=== PATIENT | female | born 1955 | race Caucasian/White ===

== ENCOUNTER → 2018-03-08 14:41 | Outpatient (CLI) | payer OTHER, SELFPAY ==
--- NOTE | 2018-03-08 | DI.RAD.S_ITS ---
PROCEDURE: XR ANKLE RT MIN 3V INDICATIONS: ACUTE RIGHT ANKLE PAIN TECHNIQUE: 3 views of the ankle were acquired. COMPARISON: None. FINDINGS: Bones: No fractures or dislocations. Ankle mortise is normally aligned. No suspicious bony lesions. Soft tissues: There is marked soft tissue swelling of the lateral malleolus. No tibiotalar joint effusion. Achilles tendon appears normal. IMPRESSION: Lateral malleolar soft tissue swelling. No acute fracture visualized. If pain persists, followup imaging in 5-7 days is recommended to exclude occult fracture. Dictated by: Sarah Alonzo M.D. on 03/08/2018 at 15:32 Approved by: Sarah Alonzo M.D. on 03/08/2018 at 15:33
== END ==
PROVIDERS: Family Provider Family Medicine; PCP Family Medicine; Visit Provider Nurse Practitioner Family
DX: M25.571 Pain in right ankle and joints of right foot (principal); M79.89 Other specified soft tissue disorders
CPT/HCPCS: 73610

== ENCOUNTER → 2018-11-24 15:34 | Outpatient (CLI) | payer OTHER, SELFPAY ==
[2018-11-24 17:03] LABS: Alanine Aminotransferase 17 IU/L (9-52); Albumin 4.1 g/dL (3.5-5.0); Albumin Globulin Ratio 1.6 (1.0-2.8); Alkaline Phosphatase 79 U/L (38-126); Aspartate Aminotransferase 19 IU/L (14-36); Bilirubin Total 0.2 mg/dL (0.2-1.3); Bilirubin Unconjugated 0.2 mg/dL (0.0-1.1); Globulin 2.6 g/dL (1.7-4.1); HEMOLYSIS < 15 (0-50); Total Protein 6.7 g/dL (6.3-8.2)
[2018-11-24 17:49] LABS: Hepatitis B Surface Antigen NEGATIVE s/c (NEGATIVE)
[2018-11-24 18:01] LABS: HIV 1 & 2 Ab/Ag 4th Gen Combo NEGATIVE (NEGATIVE); Hep C Virus Ab w/Reflex Quant NEGATIVE s/c (NEGATIVE)
[2018-11-27 13:25] LABS: Mitogen-NIL > 10.00 IU/mL; NIL 0.03 IU/mL; QuantiFERON TB POSITIVE (Negative); TB1-NIL 5.47 IU/mL; TB2-NIL 3.43 IU/mL
[2018-12-01 10:04] LABS: Hepatitis B Surf Ab Qualitativ Nonreactive (Nonreactive)
== END ==
PROVIDERS: PCP Family Medicine; Visit Provider Dermatology
DX: L40.0 Psoriasis vulgaris (principal)
CPT/HCPCS: 36415; 80076; 86480; 86706; 86803; 87340; 87389

== ENCOUNTER → 2018-12-11 10:34 | Outpatient (CLI) | payer OTHER, SELFPAY ==
--- NOTE | 2018-12-11 | DI.RAD.S_ITS ---
PROCEDURE: XR CHEST 2V INDICATIONS: ROUTINE TECHNIQUE: 2 views of the chest were acquired. COMPARISON: None. FINDINGS: Surgical changes and devices: None. Lungs and pleura: Lungs are clear. No pleural effusions or pneumothorax. Mediastinum: Mediastinal contours are normal. Heart size is normal. Bones and chest wall: No suspicious bony abnormalities. Soft tissues appear unremarkable. IMPRESSION: Negative chest. No acute cardiopulmonary process is evident. Dictated by: Gilmar Travis M.D. on 12/11/2018 at 9:50 Approved by: Gilmar Travis M.D. on 12/11/2018 at 9:51
== END ==
PROVIDERS: PCP Family Medicine; Visit Provider Family Medicine
DX: R76.12 Nonspecific reaction to cell mediated immunity measurement of gamma interferon antigen response without active tuberculosis (principal)
CPT/HCPCS: 71046

== ENCOUNTER → 2020-11-22 15:31 | Outpatient (CLI) | payer MEDICARE, SELFPAY ==
--- NOTE | 2020-11-22 15:32 | DI.ECHO.S_ITS ---
[facility] +---------+ : : [address] : : : : [id number] : : : : Phone: [phone]+ Echocardiogram Report + + :Name: DELIA SAUNDERS Study Date: 11/22/2020 Height: 65 in : :[facility] ReadingLocation: Weight: 162 lb : : Gender: Female BSA: 1.8 m2 : :: 1955 Age: 65 yrs BP: 150/80 mmHg: :Reason For Study: Murmur : : Performed By: BISHOP ARAMBULA : :Referring: SEBASTIAN RASCON : + + Interpretation Summary The left ventricle is hyperdynamic. The ejection fraction is estimated to be 70-75%. The aortic valve is mildly calcified. There is mild aortic stenosis. There is trace aortic regurgitation. Procedure: A two-dimensional transthoracic echocardiogram with color flow and Doppler was performed. The study quality was technically difficult. Images from the parasternal window were difficult to obtain and are suboptimal in quality. Most of the acoustic windows were suboptimal, but the best imaging was obtained from the apical window. There is no prior echocardiogram noted for this patient. The patient was in normal sinus rhythm during the exam. Left Ventricle: The left ventricular cavity is small. There is normal left ventricular wall thickness. The left ventricle is hyperdynamic. The ejection fraction is estimated to be 70-75%. Right Ventricle: The right ventricle is normal in size and function. Atria: The left atrial size is normal. Right atrial size is normal. There is no Doppler evidence for an interatrial shunt. Lipomatous hypertrophy of the interatrial septum is noted. Mitral Valve: The mitral valve is normal. There is trace mitral regurgitation. Aortic Valve: The aortic valve is trileaflet. The aortic valve is mildly calcified. The aortic valve opens well. The peak aortic velocity is 2.9 m/sec. The aortic valve mean gradient is 17 mmHg. There is mild aortic stenosis. There is trace aortic regurgitation. Tricuspid Valve: The tricuspid valve is normal. There is a trace or physiologic amount of tricuspid regurgitation. Pulmonary artery pressures cannot be estimated because of the lack of a measurable TR jet velocity but the IVC suggests a CVP of around 3 mmHg. Pulmonic Valve: The pulmonic valve is not well seen, but is grossly normal. Great Vessels: The aortic root is normal size. The ascending aorta could not be visualized. The aortic arch is normal in size. The IVC is of normal diameter and collapses greater than 50% with a sniff. This suggests a low right atrial pressure of 3 mm Hg. Pericardium/ Pleura There is no pericardial effusion. There is an anterior echo-free space consistent with a fat pad. There is no pleural effusion. MMode/2D Measurements & Calculations LVIDd: 3.7 cm Ao root diam: 2.8 cm LVIDs: 2.5 cm Ao Arch Diam (Prox Trans): 1.9 cm FS: 33.4 % IVSd: 1.00 cm LVPWd: 0.97 cm LV galaviz. diameter/BSA (cm/m^2): 2.1 LV sys. diameter/BSA (cm/m^2): 1.4 LA A2 area: 16.7 cm2 RA long axis: 4.4 cm LA A4 area: 15.4 cm2 RA area: 11.6 cm2 LA length (vol): 5.2 cm RA vol: 25.8 ml LA vol: 42.2 ml RA : 14.2 ml/m2 LA vol index: 23.3 ml/m2 RVD1 (basal): 3.5 cm TAPSE: 2.5 cm Doppler Measurements & Calculations Ao V2 max: 286.9 cm/sec LVOT Max Dany: 139.8 cm/sec Ao V2 mean: 197.9 cm/sec LV V1 max P.8 mmHg Ao max P.9 mmHg LV V1 VTI: 28.9 cm Ao mean P.2 mmHg sev ratio: 0.47 Ao V2 VTI: 61.5 cm MV E max dany: 69.7 cm/sec PA V2 max: 90.9 cm/sec MV A max dany: 118.7 cm/sec PA V2 mean: 75.3 cm/sec MV E/A: 0.59 PA mean P.4 mmHg Med Peak E' Dany: 4.5 cm/sec PA pr(Accel): 32.8 mmHg E/E' med: 15.4 Lat Peak E' Dany: 5.9 cm/sec E/E' lat: 11.8 E/e' average: 13.6 MV dec time: 0.30 sec Reading Physician:03:17 PM
== END ==
PROVIDERS: PCP Family Medicine; Referring Provider Family Medicine; Visit Provider Family Medicine
DX: I35.0 Nonrheumatic aortic (valve) stenosis (principal); R01.1 Cardiac murmur, unspecified
CPT/HCPCS: 93306

== ENCOUNTER → 2021-04-23 08:06 | Outpatient (CLI) | payer MEDICARE, SELFPAY ==
[2021-04-23 19:38] LABS: COVID19 - ORCAS (NP or Nasal) Negative (Negative)
== END ==
PROVIDERS: PCP Family Medicine; Visit Provider Family Medicine
DX: Z20.822 Contact with and (suspected) exposure to COVID-19 (principal)
CPT/HCPCS: C9803; U0003

== ENCOUNTER → 2021-04-24 09:24 | Outpatient (CLI) | payer MEDICARE, SELFPAY ==
--- NOTE | 2021-04-24 09:27 | DI.RAD.S_ITS ---
PROCEDURE: FL SHOULDER INJECTION MR/CT RT INDICATIONS: HISTORY OF RIGHT ROTATOR CUFF REPAIR COMPARISON: None TECHNIQUE: The indications, alternatives, benefits, risks, and complications of the procedure were explained to the patient. Written informed consent was obtained and placed in the chart. The shoulder was examined fluoroscopically and a site for needle placement chosen for entry into the glenohumeral joint from an anterior approach. The skin was prepped and draped in a sterile fashion, and 1% lidocaine infiltrated from skin down to joint capsule. A spinal needle was inserted into the glenohumeral joint, and a small amount of iodinated contrast media injected to confirm intra-articular placement of the needle tip. This was followed by approximately 12 mL dilute solution of a gadolinium containing MR contrast agent. The needle was removed and a dressing was applied. The patient was given postprocedural instructions and sent to the MR suite for MR imaging. FINDINGS: A single fluoroscopic spot image demonstrates intra-articular location of injected iodinated contrast. IMPRESSION: Successful fluoroscopically guided administration of dilute Gadolinium solution into the shoulder joint for MR arthrogram. Dictated by: Jere Mace M.D. on 04/24/2021 at 11:11 Approved by: Jere Mace M.D. on 04/24/2021 at 11:12
--- NOTE | 2021-04-24 09:27 | DI.MRI.S_ITS ---
PROCEDURE: MR SHOULDER RT W CON INDICATIONS: HISTORY OF RIGHT ROTATOR CUFF REPAIR TECHNIQUE: After the administration of 12 mL of dilute intra-articular Gadolinium contrast, oblique coronal T1 and T2 spin echo with fat saturation, oblique sagittal T1 spin echo with and without fat saturation, oblique sagittal T2 fast spin echo with fat saturation, axial T1 spin echo with fat saturation through the shoulder. COMPARISON: [facility] ([place]), CR, XR SHOULDER RT MIN 2V, 03/13/2021, 9:58. FINDINGS: Image quality: Degraded by motion artifact. Rotator cuff: Full-thickness tearing of the entire supraspinatus tendon is present with medial retraction and atrophy of the supraspinatus. There is mild diffuse T2 signal elevation throughout the infraspinatus tendon at the humeral insertion site, extending to the musculotendinous junction, indicating tendinopathy. Low-grade partial-thickness intrasubstance articular surface tearing of the anterior, mid, and posterior infraspinatus tendon at the humeral insertion site. Full-thickness tearing of most of the subscapularis tendon is present with medial retraction and atrophy. There are a few intact fibers of superior and inferior subscapularis tendon remaining. Bones and bursae: Tendon anchor within the humeral head. No bone marrow contusions or fractures. Superior subluxation the humeral head. There is a well-circumscribed high T2 intensity focus within the humeral head/neck, measuring roughly 20 mm diameter, which demonstrates multiple nodular internal low T2 intensity foci. 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 Moderate acromioclavicular joint degeneration. The acromion demonstrates conventional anatomy, without an os acromiale. Capsule and soft tissues: Diffuse degenerative glenoid labral tearing. Biceps tendon is dislocated medially. The rotator interval appears normal, without fibrosis. The coracohumeral ligament is of normal thickness. No intra-articular bodies. IMPRESSION: 1. Full-thickness tearing of the entire supraspinatus and most of the subscapularis tendons, with associated atrophy. 2. Tendinopathy with superimposed partial thickness tears of the infraspinatus tendon. 3. Low-grade cartilaginous lesion within the proximal humerus as described above. 4. Acromioclavicular joint osteoarthritis. 5. Biceps tendon dislocation. 6. Diffuse degenerative glenoid labral tearing. 7. Postsurgical sequelae. Dictated by: Nathan Fitzgerald M.D. on 04/24/2021 at 11:02 Approved by: Nathan Fitzgerald M.D. on 04/24/2021 at 11:06
== END ==
PROVIDERS: PCP Family Medicine; Referring Provider Orthopaedic Surgery; Visit Provider Orthopaedic Surgery
DX: S46.011A Strain of muscle(s) and tendon(s) of the rotator cuff of right shoulder, initial encounter (principal); M19.011 Primary osteoarthritis, right shoulder; S43.431A Superior glenoid labrum lesion of right shoulder, initial encounter
CPT/HCPCS: 23350; 73222; 77002

== ENCOUNTER → 2021-04-29 08:14 | Outpatient (CLI) | payer MEDICARE, SELFPAY ==
[2021-04-29 19:33] LABS: COVID19 - ORCAS (NP or Nasal) Negative (Negative)
== END ==
PROVIDERS: PCP Family Medicine; Visit Provider Family Medicine
DX: Z01.812 Encounter for preprocedural laboratory examination (principal); Z20.822 Contact with and (suspected) exposure to COVID-19
CPT/HCPCS: C9803; U0003

== ENCOUNTER 2021-05-01 09:23 | Day surgery (SDC) | payer MEDICARE, SELFPAY ==
--- NOTE | 2021-05-01 | PATH_ITS ---
[facility] Accession Number: [id number] . 01 Material submitted: . PART A: colon - RANDOM COLON BIOPSIES PART B: colon - TRANSVERSE COLON POLYP X2 . 02 Diagnosis: A. Random Colon Biopsies: Colonic mucosa with no diagnostic abnormality. Negative for active, chronic, and microscopic colitis. Negative for dysplasia and malignancy. . B. Transverse Colon Polyp x2: Multiple (approximately five) portions of tubular adenoma. MRV 05/06/2021 1332 Local . 02 Electronically signed: . Destiny Duke MD, Pathologist NPI- [id number] . 01 Gross description: . Part A: RANDOM COLON BIOPSIES: Received in formalin are 4 fragment(s) of ahumada, soft tissue measuring 0.1 x 0.1 x 0.1 cm to 0.4 x 0.2 x 0.2 cm submitted entirely in 1 cassette(s) Part B: TRANSVERSE COLON POLYP X2: Received in formalin are multiple fragment(s) of ahumada, soft tissue measuring 0.1 x 0.1 x 0.1 cm to 0.5 x 0.3 x 0.2 cm submitted entirely in 1 cassette(s) /SHAYAN 05/02/[id number] Local . 02 Pathologist provided ICD-10: K63.5, R19.7, R10.12, Z86.010 . 02 CPT . 496346, 959657 Specimen Comment: A courtesy copy of this report has been sent to [phone] Performed at: 01 [facility] [address], [place], [place] [id number] MD Brandon Puente MD Phone: [phone] Performed at: 02 [facility] [address] [address], [place] [id number] MD Kenna Alfonso MD Phone: [phone]
[2021-05-01 11:09] VITALS: BP 159/80; PULSE 77; RESP 14; TEMP 36.2; O2SAT 98; BMI 26.9
[2021-05-01] MEDS: SODIUM CHLORIDE 0.9% 1,000 ML 84 ML IV (11:19)
--- NOTE | 2021-05-01 11:30 | PM.HP.1 ---
History of Present Illness History of Present Illness Date Patient Seen: 05/01/21 Chief complaint: DX COLONOSCOPY Narrative: Diarrhea and left lower quadrant pain Patient History Medical History (Updated 05/01/21 @ 11:05 by Estelle Matthews RN) Diabetes Hypertension Family & Social History Social History: household members spouse Tobacco & Substance use: Tobacco type cigarettes Smoking packs per day 1 alcohol intake frequency holiday/special occasion Substance Use Type does not use Meds Home Medications and Allergies Home Medications Medication Instructions Recorded Confirmed Type fluoxetine 20 mg capsule mg 05/01/21 History glipizide 2.5 mg tablet, extended mg PO 05/01/21 History release 24 hr metformin 500 mg tablet mg 05/01/21 History simvastatin 20 mg tablet mg 05/01/21 History triamterene 75 tab 05/01/21 History mg-hydrochlorothiazide 50 mg tablet Allergies Allergy/AdvReac Type Severity Reaction Status Date / Time No Known Drug Allergies Allergy Verified 05/01/21 11:05 Exam Vital Signs (past 8 hours): - 05/01/21 11:09 Temperature 97.2 F L Pulse Rate 77 Respiratory Rate 14 Blood Pressure 159/80 H Pulse Oximetry 98 Oxygen Delivery Method Room Air Narrative Exam Narrative: Oropharynx free of lesions Chest clear to auscultation percussion Cardiac exam reveals no S3 or murmur Assessment & Plan Assessment & Plan narrative: Diarrhea and left lower quadrant pain rule out underlying colitis. Biopsies will be taken regardless. Risks, benefits, alternatives have been explained. Time Spent With Patient Critical Care time: I spent a total of [] minutes of critical care time on this patient's care today; this time is exclusive of procedural time.
--- NOTE | 2021-05-01 11:31 | PM.OP.COLON ---
Operative Date/Time/Diagnoses Date of procedure: 05/01/21 Pre-op diagnosis: See indication and findings Procedure & Clinicians Study performed: Colonoscopy with biopsy Indications: Diarrhea and left lower quadrant pain Surgeon: Chel Carrasco Procedure Notes Procedure in detail: After informed consent was obtained the patient was placed in left lateral decubitus position. The video colonoscope was introduced the rectum slowly advanced cecum. Preparation was good. On slow withdrawal mucosa was carefully examined. The scope was removed. The patient tolerated tolerated the procedure well. Blood loss none Complications none Sedation mac Findings 1. Two transverse colon polyps each 6 mm and each removed with a cold snare completely. 2. Random biopsies taken throughout the colon to rule out microscopic colitis 3. Sigmoid diverticulosis 4. Otherwise negative colonoscopy to cecum Will be in touch regarding pathology results
[2021-05-01 11:56] VITALS: BP 99/46; PULSE 66; RESP 20; TEMP 35.7; O2SAT 94
[2021-05-01 12:01] VITALS: BP 101/48; PULSE 60; RESP 12; O2SAT 97
[2021-05-01 12:06] VITALS: BP 130/56; PULSE 66; RESP 16; O2SAT 97
[2021-05-01 12:10] VITALS: BP 131/62; PULSE 63; RESP 20; O2SAT 95
[2021-05-01 12:21] VITALS: BP 154/68; PULSE 67; RESP 18; TEMP 36.1; O2SAT 95
== END 2021-05-01 12:30 | disposition home or self-care (01) ==
PROVIDERS: PCP Family Medicine; Referring Provider Internal Medicine Gastroenterology; Visit Provider Internal Medicine Gastroenterology
PROC: 0DJD8ZZ Inspection of Lower Intestinal Tract, Via Natural or Artificial Opening Endoscopic (ICD-10-PCS; CPT 45378; principal; 2021-05-01 11:30)
DX: R19.7 Diarrhea, unspecified (principal); R10.32 Left lower quadrant pain; K57.30 Diverticulosis of large intestine without perforation or abscess without bleeding; D12.3 Benign neoplasm of transverse colon
CPT/HCPCS: 45385; 45380; J2704

== ENCOUNTER → 2021-05-08 09:03 | Outpatient (CLI) | payer MEDICARE, SELFPAY ==
--- NOTE | 2021-05-08 10:12 | DI.CT.S_ITS ---
PROCEDURE: CT ABDOMEN PELVIS W CON INDICATIONS: Left upper quadrant pain TECHNIQUE: After the administration of oral and IV contrast, axial sections were acquired from the lung bases to the pubic symphysis. Coronal and sagittal reformats were performed. For radiation dose reduction, the following was used: automated exposure control, adjustment of mA and/or kV according to patient size. COMPARISON: Located Within [facility], CT, ABDOMEN/PELVIS WITH CONTRAST, 12/07/2007, 13:23. FINDINGS: Image quality: Excellent. Lung bases: There is a calcified granuloma in the left lung base. Small hiatal hernia and mild concentric thickening at the GE junction. Heart: No significant findings. ABDOMEN: Liver: Normal size. Mild steatosis. Calcified granulomas are noted. Gallbladder: Unremarkable. Biliary ducts: Unremarkable. Pancreas: Unremarkable. Spleen: Size. There are multiple calcified granulomas. Spleen is normal in size. Splenules are noted. Adrenal Glands: Unremarkable. Kidneys and Ureters: Normal size and symmetric enhancement. Cortical scars are seen bilaterally no stones or hydronephrosis. Stomach and Bowel: Stomach, small bowel loops, and colon are unremarkable. Moderate amount of stool in colon Peritoneum: No abnormal intraperitoneal fluid. No free air. Ventral Wall: No hernia. Abdominal Nodes: No retroperitoneal or mesenteric adenopathy by size criteria. Vessels: Aorta and inferior vena cava are normal in size. PELVIS: Pelvic Organs: Unremarkable. Bladder: Wall thickening. Pelvic Nodes: No enlarged lymph nodes. Miscellaneous: No inguinal hernias are seen. Bones: Moderate degenerative disc and facet disease in lumbar spine. IMPRESSION: 1. Diffuse bladder wall thickening with cystitis. 2. Bilateral renal cortical scars. 3. Mild hepatic steatosis. 4. Small hiatal hernia and mild concentric thickening of the GE junction. If clinically indicated, esophagram or upper endoscopy may be helpful 5. Remote granulomatous disease in the left lung base, liver and spleen. Dictated by: Vivi Donald M.D. on 05/08/2021 at 11:21 Approved by: Vivi Donald M.D. on 05/08/2021 at 17:02
== END ==
PROVIDERS: PCP Family Medicine; Referring Provider Family Medicine; Visit Provider Family Medicine
DX: N30.90 Cystitis, unspecified without hematuria (principal); K76.0 Fatty (change of) liver, not elsewhere classified; K44.9 Diaphragmatic hernia without obstruction or gangrene; R10.12 Left upper quadrant pain
CPT/HCPCS: 74177

== ENCOUNTER → 2023-05-07 10:43 | Outpatient (CLI) | payer MEDICARE, SELFPAY ==
--- NOTE | 2023-05-07 | DI.ECHO.S_ITS ---
[facility]---------+ [facility] +---------+ : : [address] : : : : [id number] : : : : Phone: [phone]---------+ Echocardiogram Report + + :Name: DELIA SAUNDERS Study Date: 05/07/2023 Height: 66 in : :[facility] ReadingLocation: Weight: 152 lb : : Gender: Female BSA: 1.8 m2 : :: 1955 Age: 68 yrs BP: 165/94 mmHg: :Reason For Study: MURMUR : :Ordering Physician: ABIODUN, : :SBEASTIAN Ramon Performed By: Jeremy Edwards : :Referring: SEBASTIAN RASCON : + + Interpretation Summary 1) Normal left ventricular thickness, size, wall motion, and systolic function (EF 65-70%). 2) Normal right ventricular size and function. 3) There is moderate aortic stenosis (valve area 1.2cm2, mean gradient 23mmHg, severity ratio 0.41). 4) Compared to the Echo done 11/22/2020, aortic stenosis has progressed from mild to moderate on this study. Procedure: A two-dimensional transthoracic echocardiogram with color flow and Doppler was performed. The study quality was technically adequate. Comparison is made with the echocardiogram of 11/22/2020. The patient was in normal sinus rhythm during the exam. The heart rate ranged between 56-75 bpm during the study. Left Ventricle: The left ventricle is normal in size and wall thickness. Proximal septal thickening is noted. The ejection fraction is estimated to be 65-70%. Left ventricular systolic function appears normal without focal wall motion abnormalities. Diastolic parameters suggest a relaxation abnormality of the left ventricle, consistent with probable normal filling pressures. Right Ventricle: The right ventricle is normal in size and function. Atria: The left atrial size is normal. Right atrial size is normal. The interatrial septum grossly appears intact with no obvious evidence for an atrial septal defect. Mitral Valve: The mitral valve is normal in structure and function. There is no mitral valve stenosis. There is trace mitral regurgitation. Aortic Valve: The aortic valve is trileaflet. There is mild aortic valve sclerosis. There is moderate aortic stenosis. The peak aortic velocity is 3.07 m/sec. The aortic valve mean gradient is 23.0 mmHg. No aortic regurgitation is present. Tricuspid Valve: The tricuspid valve is normal in structure and function. There is no tricuspid stenosis. There is a trace or physiologic amount of tricuspid regurgitation. Pulmonic Valve: The pulmonic valve is not well visualized. There is no pulmonic valvular stenosis. There is no pulmonic valvular regurgitation. Great Vessels: The aortic root is normal size. The ascending aorta could not be visualized. The IVC is of normal diameter and collapses greater than 50% with a sniff. This suggests a low right atrial pressure of 3 mm Hg. Pericardium/ Pleura There is no pericardial effusion. There is no pleural effusion. MMode/2D Measurements & Calculations LVIDd: 4.1 cm LVOT diam: 1.9 cm LVIDs: 2.7 cm Ao root diam: 3.0 cm FS: 34.0 % IVSd: 1.4 cm LVPWd: 0.95 cm LV galaviz. diameter/BSA (cm/m^2): 2.3 LV sys. diameter/BSA (cm/m^2): 1.5 LA A2 area: 16.3 cm2 RA long axis: 3.8 cm LA A4 area: 13.5 cm2 RA area: 8.5 cm2 LA length (vol): 4.4 cm RA vol: 16.1 ml LA vol: 42.7 ml RA : 9.1 ml/m2 LA vol index: 24.0 ml/m2 IVC diam: 1.0 cm RVD1 (basal): 2.6 cm RVD2 (mid): 2.4 cm TAPSE: 1.9 cm Doppler Measurements & Calculations Ao V2 max: 307.4 cm/sec LVOT Max Dany: 105.3 cm/sec Ao V2 mean: 228.6 cm/sec LV V1 max P.4 mmHg Ao max P.8 mmHg LV V1 VTI: 29.9 cm Ao mean P.0 mmHg CHRISTINE(I,D): 1.2 cm2 Ao V2 VTI: 72.2 cm CHRISTINE(V,D): 1.0 cm2 sev ratio: 0.41 CHRISTINE indexed to BSA (cm^2/m^2): 0.68 MV E max dany: 69.9 cm/sec PA V2 max: 112.5 cm/sec MV A max dany: 115.3 cm/sec PA V2 mean: 83.8 cm/sec MV E/A: 0.61 PA mean P.1 mmHg Med Peak E' Dany: 4.9 cm/sec PA pr(Accel): 13.9 mmHg E/E' med: 14.2 Lat Peak E' Dany: 5.7 cm/sec E/E' lat: 12.2 E/e' average: 13.2 MV dec time: 0.37 sec SV(OT): 87.5 ml Reading Physician:04:31 PM
== END ==
PROVIDERS: PCP Family Medicine; Referring Provider Family Medicine; Visit Provider Family Medicine
DX: I35.8 Other nonrheumatic aortic valve disorders (principal); I35.2 Nonrheumatic aortic (valve) stenosis with insufficiency; R01.1 Cardiac murmur, unspecified
CPT/HCPCS: 93306

== ENCOUNTER → 2024-03-10 10:44 | Outpatient (CLI) | payer MEDICARE, SELFPAY | LOC: LAB 10:46 | PROVIDERS: PCP Family Medicine; Referring Provider Dermatology; Visit Provider Dermatology | DX: L40.0 Psoriasis vulgaris (principal) | CPT/HCPCS: 36415; 86480 ==